=== PATIENT | male | born 1965 | race Caucasian/White ===

== ENCOUNTER 2024-05-13 16:37 | Emergency (ER) | payer OTHER, SELFPAY ==
[2024-05-13 16:40] VITALS: BP 133/74
[2024-05-13 16:42] LABS: Glucose - Point of Care 133 mg/dl (70-99)
[2024-05-13 16:50] VITALS: BMI 29.6
--- NOTE | 2024-05-13 16:56 | EDRN ---
Pt states he feels fine and can go. Encouraged pt to wait for provider evaluation to look at his ribs and mouth. Pt's shirt with blood on R shoulder/sleeve. Pt was offered gown and paper scrub top and he declined to change stating he was going
back to work. Pt with dried blood on lower lip and on tongue. Pt given paper towels and hand wipes per request. Pt provided with ice water to drink.
[2024-05-13 17:00] VITALS: BP 149/84
--- NOTE | 2024-05-13 17:22 | EDRN ---
Pt called and said he needed juice or soda - CGM=74. Pt given 3 OJs. Noted pt ate a nutrigrain bar he brought with him. Dr Schaeffer updated and asked that pt be given boxed meal. Boxed turkey sandwich meal provided to pt and he was encourage to eat
it. Pt said 'but I just want to go.' Discussed concern regarding his blood sugar dropping with pt and if it is not stabilized he may have another fall/unresponsive episode. Pt's CGM now shows 71.
--- NOTE | 2024-05-13 17:29 | EDRN ---
CGM=68. Pt drank second OJ and has boxed meal open on his lap, talking with registration.
--- NOTE | 2024-05-13 17:39 | EDRN ---
CGM=79. Dr Schaeffer at bedside.
--- NOTE | 2024-05-13 17:55 | EDRN ---
Assisted pt to sitting position on stretcher. Pt got up to go to the bathroom and complained of pain in his calves. Dr Schaeffer in room at time this occurred. Pt denies dizziness. Pt corrected his blood sugar earlier but admits he did not eat lunch,
only breakfast.
[2024-05-13] MEDS: NSS 1000 IV (18:11)
[2024-05-13] MEDS: TORADOL 15 MG IV (18:14)
[2024-05-13 18:16] VITALS: BP 161/89
--- NOTE | 2024-05-13 18:21 | EDRN ---
Pt changed into gown when he returned from bathroom. Pt ate half turkey sandwich, drank 3 orange juices and 1 apple juice. SMR=696
[2024-05-13 18:23] LABS: Urine Albumin 2+ (Neg - Trace); Urine Bilirubin Negative (Negative); Urine Character Clear (Clear); Urine Color Yellow; Urine Glucose 1+ (Negative); Urine Ketone Trace (Negative); Urine Leukocyte Negative (Negative); Urine Nitrite Negative (Negative); Urine Occult Blood 3+ (Negative); Urine Specific Gravity 1.025 (<1.030); Urine Urobilinogen Negative (Neg - 1+)
[2024-05-13 18:31] LABS: INR 0.96; PT 13.1 Sec (11.4-14.6)
[2024-05-13 18:34] LABS: ALT (SGPT) 41 U/L (0-50); AST (SGOT) 55 U/L (17-59); Albumin 4.8 g/dl (3.5-5.0); Alkaline Phosphatase 78 U/L (38-126); Blood Urea Nitrogen 11 mg/dl (9-20); Calcium 9.7 mg/dl (8.4-10.2); Carbon Dioxide 26 mmol/L (22-30); Chloride 97 mmol/L (98-107); Estimated Creatinine Clearance 87 ml/min; Glucose 182 mg/dl (70-99); Lipase 131 U/L (23-300); Sodium 136 mmol/L (135-145); Total Bilirubin 0.7 mg/dl (0.2-1.3); eGFR > 60.00
[2024-05-13 18:41] LABS: Urine Bacteria Few (Negative); Urine Red Blood Cell 40-50 /HPF (0-2); Urine White Cell 21-25 /HPF (0-5)
[2024-05-13 18:46] LABS: % Basophils 0.5 % (0-2); % Eosinophils 0.6 % (0-6); % Immature Granulocytes 0.8 % (0-0.5); % Lymphocytes 4.5 % (20.5-51.1); % Monocytes 6.9 % (1.7-9.3); % Neutrophils 86.7 % (42.2-75.2); Absolute Basophils 0.1 10^3/uL (0-0.2); Absolute Eosinophils 0.1 10^3/uL (0-0.7); Absolute Immature Granulocytes 0.2 10^3/uL (0-0.05); Absolute Lymphocytes 0.8 10^3/uL (1.2-3.4); Absolute Monocytes 1.3 10^3/uL (0.1-0.6); Absolute Neutrophils 16.2 10^3/uL (1.4-6.5); Hematocrit 46.7 % (39.0-52.0); Hemoglobin 17.4 g/dL (13.0-18.0); Mean Corp Hgb Conc. 37.3 g/dL (33.0-37.0); Mean Corpuscular Hgb 33.9 pg (27.0-31.0); Mean Corpuscular Volume 90.9 fL (80.0-94.0); Mean Platelet Volume 10.1 fL (7.4-10.4); Nucleated Red Blood Cells % 0 % (-); Platelet Count 222 10^3/uL (130-400); Red Blood Cell Count 5.14 10^6/uL (4.70-6.10); Red Cell Dist. Width 12.5 % (11.5-14.5); White Blood Cell Count 18.7 10^3/uL (4.8-10.8)
--- NOTE | 2024-05-13 18:55 | EDRN ---
Pt called and said his blood sugar was 301 and going higher so he gave himself 18 units humalog - Dr Schaeffer informed.
[2024-05-13 18:57] LABS: APTT 21.9 Sec (23.4-35.0)
[2024-05-13 19:00] VITALS: BP 155/81
--- NOTE | 2024-05-13 19:30 | EDRN ---
Rib and calf pain improved after toradol. GBI=257 and is going down.
--- NOTE | 2024-05-13 19:40 | ED.GENMED ---
History of Present Illness
General
Chief Complaint: Blood Sugar Problem
Source: patient and ambulance crew
Exam Limitations: none
Time Seen by Provider: 05/13/24 17:32
Nursing documentation reviewed up to this point in time: agreed with
History of Present Illness
History of Present Illness:
This is a 59-year-old gentleman who has history of diabetes, initially diagnosed 8 years ago, initially not insulin dependent but with onset of DKA 6 years ago he has been insulin-dependent since.
Maintained on Tou[place]o 32 units in the a.m. Humalog base of 12 units plus sliding scale correction 3 times daily prior to meals.
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 He has a CGM in place and today while at [employer] his blood sugar was reportedly going up to 182, he bolused himself 16 units of NovoLog with plan to walk
out to his truck and retrieve a late lunch. Unfortunately within 5 to 10 minutes he began to feel woozy and he proceeded to pass out prior to ambulatory arrival to his truck.
Upon EMS arrival Accu-Chek was reading of low. IV established and he was given 250 cc of D10 with prompt improvement in sensorium.
Accu-Chek upon arrival 133.
Patient states he has occasional mildly low blood sugars but has never had severely low blood sugars and has never passed out from low sugars in the past.
He admits that he bit his tongue and also complains of pain right anterolateral ribs/chest wall region.
He takes no anticoagulants save for low-dose aspirin.
He denies headache, denies neck or back pain, denies weakness nor numbness, denies palpitations, no abdominal pain, no nausea nor vomiting. Prior to today's been feeling well. He did eat breakfast but thus far has not had lunch.
Patient admits that he generally does not skip meals.
Accu-Chek upon arrival 133.
Over the ensuing hour since arrival blood sugar has trended down on CGM to 60, slowly trending up after consuming orange juice and eating some crackers.
Past History
Past History
ED Past Medical History: HTN and IDDM
ED Past Surgical History: Other (Traumatic liver laceration at age 14 requiring emergent laparotomy, partial liver resection.)
Social History
Tobacco: Smoker
Alcohol: Daily
Drug: None
Personal: Single
Living: with family (Resides with his girlfriend)
Employment: Employed
Family History
Family History: Other (Noncontributory)
Phy Exam
Physical Exam
Physical Exam:
GENERAL: 59-year-old gentleman appears his stated age, awake and alert, pleasant, easily communicative and appears in no acute distress.
EYE: pupils equal and reactive. anicteric. The head is normocephalic, atraumatic.
NECK: Supple, nontender, no midline bony tenderness, no step-off deformity, no meningismus, no significant adenopathy.
ENT: posterior pharynx is clear, there is a very superficial abrasion midline anterior tongue as well as ecchymosis bilateral lateral aspects of the tongue. No hematoma. No active bleeding. Teeth are intact and nontender. TM clear b/l, nares
patent. There is mild right facial pain with full mandible abduction but no tenderness about the mandible, no tenderness to the TMJ nor palpable facial tenderness. No soft tissue swelling nor obvious contusion/abrasions.
CARDIAC: Regular rhythm, mildly tachycardic. no murmur. No rub. Mild to moderate tenderness right anterolateral chest wall at rib 7-8 region. There is no crepitus nor definitive palpable abnormality.
LUNGS: Clear breath sounds bilaterally, no acute respiratory distress, full and equal excursion bilaterally, no wheezes/rales/rhonchi
ABDOMEN: Old vertical midline surgical scar as well as old right upper quadrant surgical scar. The abdomen is soft, nondistended, without focal tenderness, no r/g, no cvat. normoactive BS.
NEUROLOGICAL: Alert and oriented x3, no focal neuro deficits. Motor strength is 5/5 bilaterally. Gross sensation is intact. Gait is steady.
SKIN: Warm and dry, normal color, skin intact. No rash.
MUSCULOSKELETAL: No C/C/E. peripheral pulses are full and equal b/l. There is mild tenderness bilateral gastrocnemius muscles only noted with standing. There is full knee, ankle range of motion without difficulty nor pain.
PSYCH: Normal and appropriate interaction.
Course
Orders/Labs/Results
Orders:
Orders
05/13/24 17:49
0.9% Sodium Chloride 1000 ml [Nss] 1,000 ml IV BOLUS
Ribs, Right 3 View W/PA Chest [CR Ribs-right 3 Vw W/pa Chest*] Urgent
Comment:
Reason For Exam: syncope r/t hypoglycemia-right lat/rib pain
05/13/24 17:55
Electrocardiogram (*1) Urgent
Reason for Study: Palpitations
EKG- Treatment ONCE
05/13/24 17:56
Ketorolac [Toradol] 15 mg IV NOW STA
05/13/24 18:11
Complete Blood Count/With Diff Urgent
Comprehensive Metabolic Panel Urgent
Lipase Urgent
Protime/PTT Urgent
Urinalysis Urgent
Date Specimen was Collected: 05/13/24
Time Specimen was Collected: 18:06
Urine Microscopic Urgent
Date Specimen was Collected: 05/13/24
Time Specimen was Collected: 18:06
Abnormal Lab Results
05/13/24 05/13/24
16:41 18:11
WBC 18.7 H 10^3/uL
(4.8-10.8)
MCH 33.9 H pg
(27.0-31.0)
MCHC 37.3 H g/dL
(33.0-37.0)
Abs Immat Gran (auto) 0.2 H 10^3/uL
(0-0.05)
Absolute Neuts (auto) 16.2 H 10^3/uL
(1.4-6.5)
Absolute Lymphs (auto) 0.8 L 10^3/uL
(1.2-3.4)
Absolute Monos (auto) 1.3 H 10^3/uL
(0.1-0.6)
Immature Gran % 0.8 H %
(0-0.5)
Neutrophils % 86.7 H %
(42.2-75.2)
Lymphocytes % 4.5 L %
(20.5-51.1)
APTT 21.9 L Sec
(23.4-35.0)
Chloride 97 L mmol/L
(98-107)
Glucose 182 H mg/dl
(70-99)
Urine Ketones Trace A
(Negative)
Urine Occult Blood 3+ A
(Negative)
Urine RBC 40-50 A /HPF
(0-2)
Urine WBC 21-25 A /HPF
(0-5)
Urine Bacteria Few A
(Negative)
Urine Glucose 1+ A
(Negative)
Urine Albumin 2+ A
(Neg - Trace)
POC Glucose 133 H mg/dl
(70-99)
05/13/24 18:11
05/13/24 18:11
Vital Signs
Initial and Last Documented VS:
Initial Vital Signs
Temp Pulse Resp BP Pulse Ox
98 F 122 20 133/74 94
05/13/24 16:40 05/13/24 16:40 05/13/24 16:40 05/13/24 16:40 05/13/24 16:40
Last Documented Vital Signs
Temp Pulse Resp BP Pulse Ox
98 F 118 31 155/81 94
05/13/24 16:40 05/13/24 19:00 05/13/24 19:00 05/13/24 19:00 11/09/24 17:00
MDM/Problems Addressed
Differential Diagnosis Includes:
Patient presents after suffering significant hypoglycemic episode.
Patient minimally skipped lunch and bolused himself with NovoLog without accompanying meal.
No history of similar episodes in the past.
He suffered abrasion/superficial hematomas to his tongue without significant associated soft tissue swelling nor associated hematoma. Airway remains patent without compromise.
He also notes moderate tenderness right anterolateral chest wall concerning for rib fracture, pulmonary contusion, pneumothorax.
There is no evidence of head trauma, no midline vertebral tenderness, no focal neuro-deficit. Takes no anticoagulants save for low-dose aspirin.
He is noted to have mild sinus tachycardia, otherwise remains hemodynamically stable without hypotension. Patient denies palpitations.
Abdomen exam remains benign, nontender.
He does admit to near daily alcohol use, there may be an element of dehydration, tachycardia may be reactive to acute hypoglycemia.
Will check labs, urinalysis, PT PTT. Will check chest x-ray/right rib series.
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 At this point no indication for CT but will continue close observation.
Will continue to monitor CGM.
Patient has been encouraged to consume a turkey sandwich.
Chronic conditions affecting care: DM
Acute Exacerbation and/or Progression of Chronic Illness: DM
*Radiology
Radiology exam reviewed: radiology read reviewed
*Pulse Oximetry
Patient hypoxic: no
*EKG
Interpreted by ED Provider?: Yes
Comparison EKG: no comparison EKG present
Rate: tachycardiac
Rhythm: sinus
[place]: normal axis
Interval: normal interval
QRS Pattern: normal QRS
Ischemia: no ischemia
*Core Carrier Interpretation
Rate: tachycardiac
Interpretation: abnormal
Rhythm: sinus
*Critical Care Note
Total Time (30-74mins, 75-104mins- exclusive of procedures): Not Applicable
Update Note
Update Note:
05/13/2024 1946 PM
Patient feeling markedly improved after small IV dose of Toradol.
After eating a sandwich and consuming some orange juice, blood sugar has trended up above 300, he then gave himself an additional bolus of Humalog, 18 units. We continue to observe and he has had no recurrent episodes of hypoglycemia.
Chest x-ray shows acute right seventh anterolateral rib fracture with mild displacement. No pneumothorax nor pleural effusion.
He continues to have no shortness of breath, no abdominal nor back nor flank pain.
Labs remarkable for elevated white blood cell count of 18.7. Likely acute stress response related to severe hypoglycemia.
Chemistries are unremarkable. Normal renal function. Normal LFTs.
Urinalysis is positive for microscopic blood at 40-50 RBCs, 20-25 WBCs, few bacteria. He has had no UTI symptoms. No dysuria, no flank pain. He continues have no abdominal pain, no CVA tenderness.
He remains hemodynamically stable and afebrile.
No prior episodes of UTI.
Will hold off on antibiotic and instead await urine culture.
He may have suffered mild renal contusion but overall appears quite comfortable. Hemodynamically stable. No indication for imaging at this point.
He is eager to be discharged to home.
Discussed importance of avoiding skipping meals, absolutely avoiding Humalog bolus without a meal in front of him.
Discussed importance of rest, local ice to right chest wall for the first 1 to 2 days, then transition to heat. Avoid rib belts.
Will prescribe ibuprofen for as needed mild to moderate pain and a few hydrocodone for as needed moderate to severe pain. He has been warned to avoid all alcoholic beverages while taking hydrocodone.
Prompt follow-up with PCP as well as builder's labourer.
ED Attending Note
-
Portions of this chart may have been created with voice recognition software.� Occasional wrong word or��sound alike� substitutions may have occurred due to the inherent limitations of voice recognition software.
Discharge Plan
Departure
Patient Disposition: Home (Routine Discharge)
Date of Disposition: 05/13/24
Time of Disposition: 19:51
Patient with high blood pressure during this ER visit?: No
Condition: Good
Discharge Problem:
Severe diabetic hypoglycemia, closed fracture right 7th rib, Abrasion of tongue
Instructions: Rib fractures in adults, Low blood sugar in people with diabetes
Prescriptions:
New
diclofenac sodium 75 mg tablet,delayed release (DR/EC)
75 mg PO BID PRN (Reason: pain) Qty: 30 0RF
hydrocodone-acetaminophen 5-300 mg tablet
1 tab PO BIDPRN PRN (Reason: severe pain) Qty: 8 0RF
No Action
ascorbic acid (vitamin C) 1,000 mg Tablet
1,000 mg PO DAILY
metoprolol succinate 50 mg Tablet Extended Release 24 Hr
50 mg PO DAILY
omega [id number] oil [Fish Oil] 1,000 (120-180) mg Capsule
1 cap PO DAILY
aspirin 81 mg Capsule
81 mg PO DAILY
Vitamin B-1
1 tab PO DAILY
cyanocobalamin (vitamin B-12)
1 tab PO DAILY
Referrals:
Flaquita Mcbride PA-C [Family Provider] - Call in 1-3 days for appt
Interventions
Interventions:
*Risk Screen - Suicide Last Done: 05/13/24 16:40
*General Assessment Last Done: 05/13/24 16:40
*Neglect/Abuse Screening Last Done: 05/13/24 16:40
*ED COVID-19 Vaccine History Last Done: 05/13/24 16:40
ED- Neurological Assessment Last Done: 05/13/24 16:58
Discharge Date and Time
Print Language: VIET[place]
== END 2024-05-13 20:07 | disposition home or self-care (01) ==
LOC: EMR 16:37
PROVIDERS: EMERGENCY PHYSICIAN Emergency Medicine; FAMILY PHYSICIAN Physician Assistant
DX: E11.649 Type 2 diabetes mellitus with hypoglycemia without coma (principal); S22.31XA Fracture of one rib, right side, initial encounter for closed fracture; S00.512A Abrasion of oral cavity, initial encounter; X58.XXXA Exposure to other specified factors, initial encounter; I10 Essential (primary) hypertension; Z79.4 Long term (current) use of insulin; F17.200 Nicotine dependence, unspecified, uncomplicated
CPT/HCPCS: 99285; 96374; 96361; 71101; 80053; 81003; 81015; 82962; 83690; 85025; 85610; 85730; 87086; 93005